=== PATIENT | male | born 1995 | race Caucasian/White ===

== ENCOUNTER 2021-04-07 08:23 | Emergency (ER) | payer OTHER | END 2021-04-07 11:41 | disposition home or self-care (01) | LOC: ER1 08:23 | DX: S20.212A Contusion of left front wall of thorax, initial encounter (principal); F17.200 Nicotine dependence, unspecified, uncomplicated; X58.XXXA Exposure to other specified factors, initial encounter; Y93.67 Activity, basketball | CPT/HCPCS: 71101; 99283; J1885 ==

== ENCOUNTER 2021-04-30 16:18 | Emergency (ER) | payer OTHER ==
[2021-04-30] MEDS ORDERED: CLEOCIN HCL300 MG PO (16:51)
[2021-04-30] MEDS ORDERED: NAPROSYN500 MG PO (16:51)
== END 2021-04-30 17:13 | disposition home or self-care (01) ==
LOC: ER1 16:18
DX: K04.7 Periapical abscess without sinus (principal); F17.200 Nicotine dependence, unspecified, uncomplicated; Z86.19 Personal history of other infectious and parasitic diseases
CPT/HCPCS: 99283

== ENCOUNTER 2022-01-24 11:19 | Emergency (ER) | payer OTHER ==
[~2022-01-24 11:19] MED LIST: CLEOCIN HCL300 MG PO; NAPROSYN500 MG PO
[2022-01-24 11:50] LABS: HEMOGLOBIN 15.4 gm/dl (14.0-17.5); RED BLOOD COUNT 4.91 M/UL (4.20-5.50); WHITE BLOOD COUNT 5.6 K/UL (4.5-11.0)
[2022-01-24 16:22] LABS: BUN/CREATININE RATIO 21 (0-10)
== END 2022-01-24 20:26 | disposition home or self-care (01) ==
LOC: ER1 11:19
PROVIDERS: Physician Assistant
DX: R10.9 Unspecified abdominal pain (principal); R11.0 Nausea; E80.6 Other disorders of bilirubin metabolism; R10.813 Right lower quadrant abdominal tenderness; F19.10 Other psychoactive substance abuse, uncomplicated; F17.200 Nicotine dependence, unspecified, uncomplicated
CPT/HCPCS: 80053; 81001; 82248; 83690; 85025; 99284; Q9967